=== PATIENT | male | born 2000 | race Caucasian/White ===

== ENCOUNTER 2023-11-13 18:02 | Emergency (ER) | payer OTHER ==
[~2023-11-13] VITALS: Ht 172.7 cm; Wt 89.9 kg
[2023-11-13 18:42] VITALS: BP 163/90; PULSE 124; RESP 18; TEMP 99.1; O2SAT 100
--- NOTE | 2023-11-13 18:49 | NUR ---
PT AMB TO BED 11
--- NOTE | 2023-11-13 19:00 | NUR ---
23YO MALE PT C/O PRESSURED 2/10 CHEST PAIN X3HRS. REPORTS ONSET S/P HEAVY LIFTING AT WORK. PAIN ON MOVEMENT. DENIES RADIATION, N/V/D, SOB OR TAKING MEDICATION. PT [id number], ON [employer]. BED AT LOWEST POSITION, BED RAILS UPX2. HX: DENIES NKA
--- NOTE | 2023-11-13 19:20 | NUR ---
REPORT GIVEN TO LE[facility] ASHER. TRANSFER OF CARE AT THIS TIME
--- NOTE | 2023-11-13 19:30 | NUR ---
MEDICATED PER ERMD'S ORDER, TOLERATERED WELL.
[2023-11-13] MEDS: NACL 0.9% 1,000 ML IV ONE ×2 (19:34→22:18)
[2023-11-13 20:05] LABS: BASOPHILS % (AUTO) 0.2 % (0.0-2.0); EOSINOPHILS % (AUTO) 0.1 % (0.0-4.0); HEMATOCRIT 52.6 % (36-52); HEMOGLOBIN 17.6 g/dL (12.0-18.0); LYMPHOCYTES # (AUTO) 2.2 K/uL (2.0-11.5); LYMPHOCYTES % (AUTO) 13.5 % (20.5-51.1); MEAN CORPUSCULAR HEMOGLOBIN 29 pg (27-31); MEAN CORPUSCULAR HGB CONC 34 g/dL (33-37); MEAN CORPUSCULAR VOLUME 86.1 fL (80-94); MONOCYTES % (AUTO) 6.1 % (1.7-9.3); NEUTROPHILS # (AUTO) 13.3 K/uL (1.8-7.7); NEUTROPHILS % (AUTO) 80.1 % (42.2-75.2); PLATELET COUNT (AUTO) 323 K/uL (140-450); RED BLOOD CELL COUNT(AUTO) 6.11 MIL/uL (4.20-6.10); RED CELL DISTRIBUTION WIDTH 13.2 % (11.6-13.7); WHITE BLOOD COUNT (AUTO) 16.6 K/uL (4.8-10.8)
[2023-11-13 20:16] LABS: ANION GAP 17.8 (8-16); CALCIUM 10.8 mg/dL (8.5-10.1); CARBON DIOXIDE 27.8 mmol/L (21-32); CREATININE 1.8 mg/dL (0.6-1.3); POTASSIUM 3.6 mmol/L (3.5-5.1)
[2023-11-13 20:18] LABS: INR 0.99 (0.8-1.2); PARTIAL THROMBOPLASTIN TIME 25.2 secs (22-35.6); PROTHROMBIN TIME 10.4 secs (10.8-13.4)
[2023-11-13 20:31] LABS: MAGNESIUM 1.8 mg/dL (1.8-2.4); PHOSPHORUS 6.6 mg/dL (2.5-4.9); THYROID STIMULATING HORMONE 5.89 uIU/mL (0.34-3.74)
[2023-11-13 20:50] LABS: D-DIMER < 100 ng/ml (0-400)
[2023-11-13 20:58] LABS: AMPHETAMINE, URINE NEGATIVE ng/ml (NEG <=1000); BARBITURATE, URINE NEGATIVE ng/ml (NEG <=200); BENZODIAZEPINE, URINE NEGATIVE ng/mL (NEG <=200); CANNABINOID, URINE NEGATIVE ng/mL (NEG <=50); COCAINE, URINE NEGATIVE ng/mL (NEG <=300); OPIATE, URINE NEGATIVE ng/mL (NEG <=2000); PHENCYCLIDINE SCREEN,URINE NEGATIVE ng/mL (NEG <=25)
[2023-11-13 21:52] LABS: ALBUMIN 5.2 g/dL (3.4-5.0); BILIRUBIN,DIRECT 0.2 mg/dL (0.0-0.3); FREE T4 (FREE THYROXINE) 0.98 ng/dL (0.76-1.46); TOTAL BILIRUBIN 0.8 mg/dL (0.0-1.0); TOTAL PROTEIN, SERUM 10.2 g/dL (6.4-8.2)
--- NOTE | 2023-11-13 23:00 | NUR ---
ALL RESULTS BACK AND NOTED BY ERMD AND FOR D/C
--- NOTE | 2023-11-13 23:20 | NUR ---
Patient discharged with v/s stable. Written and verbal after care instructions given and explained. Patient verbalized understanding. Ambulatory with steady gait. All questions addressed prior to discharge. Advised to follow up with PMD.
[2023-11-13 23:25] VITALS: RESP 16; TEMP 98.3
[2023-11-14 02:10] VITALS: BP 112/78; PULSE 82; O2SAT 98
== END 2023-11-13 23:20 | disposition home or self-care (01) ==
LOC: MED 18:02
DX: E86.0 Dehydration (principal); R06.02 Shortness of breath; R07.89 Other chest pain; F17.210 Nicotine dependence, cigarettes, uncomplicated; Z71.6 Tobacco abuse counseling
CPT/HCPCS: 36415; 71045; 80048; 80076; 80305; 82550; 83735; 83880; 84100; 84439; 84443; 84484; 85025; 85379; 85610; 85730; 93005; 96360; 96361; 99285; J7030